=== PATIENT | female | born 1965 | race Caucasian/White ===

== ENCOUNTER 2019-03-10 08:04 | Emergency (ER) | payer OTHER ==
[~2019-03-10] VITALS: Ht 162.6 cm; Wt 62.1 kg
[2019-03-10 08:08] VITALS: Ht 162.6 cm; Wt 62.1 kg
[2019-03-10 09:08] VITALS: BP 138/71
== END 2019-03-10 09:37 | disposition home or self-care (01) ==
LOC: ED 08:04
DX: J06.9 Acute upper respiratory infection, unspecified (principal)
CPT/HCPCS: Q0092

== ENCOUNTER 2019-03-18 13:56 | Emergency (ER) | payer OTHER ==
[~2019-03-18] VITALS: Ht 160 cm; Wt 62.6 kg
[2019-03-18 15:31] VITALS: BP 138/84
== END 2019-03-18 15:31 | disposition home or self-care (01) ==
LOC: ED 13:56
DX: J06.9 Acute upper respiratory infection, unspecified (principal)